=== PATIENT | female | born 1935 | race Caucasian/White ===

== ENCOUNTER 2016-09-19 13:28 | Emergency (ER) | payer OTHER, MEDICAID ==
--- NOTE | 2016-09-19 13:56 | EDPHY ---
H & P Stated Complaint: epigastric pain radiating to back this am, nausea Time Seen by Provider: 09/19/16 13:38 HPI/ROS: CHIEF COMPLAINT: Abdominal and back pain HISTORY OF PRESENT ILLNESS: The patient is an 81 y/o female arriving via EMS complaining of periumbilical abdominal pain with associated back pain onset at 9 :00 this morning, about 4.5 hours ago. Her history is significant for asthma and hypertension. She felt normal upon waking today, but around 9:00 she developed periumbilical pain that felt "like needles and gas" and radiated around both sides at the same level to her back. She took an OTC medication for gas without alleviation. She received 100mcg IV Fentanyl and 4mg IV Zofran from EMS, which resolved her pain completely. She continues to have nausea and belching. She reports a normal bowel movement this morning. She denies fever, vomiting, diarrhea, constipation, dysuria, dyspnea, chest pain, calf pain, leg weakness or paresthesia. She has never felt this pain previously and denies any previous abdominal surgeries. REVIEW OF SYSTEMS: A 10 point review of systems was performed and is negative with the exception of the elements mentioned in the history of present illness. Source: Patient Exam Limitations: No limitations - Personal History Current Tetanus/Diphtheria Vaccine: Unsure Current Tetanus Diphtheria and Acellular Pertussis (TDAP): Unsure Tetanus Vaccine Date: ~2010 - Medical/Surgical History PMH: PMH includes: 1. Asthma 2. Hypertension 3. Episode of Colitis 4. Possible osteoporosis 5. Cataract surgery 6. Arthritis 7. Skin cancer Prior medical records reviewed including admission 02/04/12 for asthma exacerbation and ED visit 06/09/16 for cough. Hx Asthma: Yes Hx Chronic Respiratory Disease: No Hx Diabetes: No Hx Cardiac Disease: No Hx Renal Disease: No Hx Cirrhosis: No Hx Alcoholism: No Hx HIV/AIDS: No Hx Splenectomy or Spleen Trauma: No Other PMH: htn asthma - Social History Smoking Status: Never smoked Additional Social History: Immigrant from [place]. Lives alone. No cigarettes or alcohol use. Worked as an principal automation engineer. PCP: Dr. Strickland Warp Worker: Dr. Harris; next appointment scheduled in 5 days on 09/23 - Physical Exam Exam: General Appearance: Alert, no acute distress. BP 182/78 at triage, 144/73 at time of my exam. Eyes: Pupils equal and round, no conjunctival injection, no discharge. Anicteric. ENT, Mouth: Mucous membranes are moist, no oropharyngeal erythema or edema. Neck: No lymphadenopathy, supple. Respiratory: Lungs are clear to auscultation; no wheezes, rales, or rhonchi. Cardiovascular: Regular rate and rhythm; no murmur, rub, or gallop. Gastrointestinal: Abdomen is obese, soft, mild RUQ tenderness, no masses or organomegaly, bowel sounds diminished. Skin: Warm and dry, no rashes, normal color. Back: Nontender to palpation over the thoracolumbar spine. Non-tender [id number] area of erythema to the right of T-L junction without warmth or evidence of rash. Extremities: No lower extremity edema, no calf tenderness or swelling. Neurological: Alert and oriented. Moving all four extremities easily and equally. Strength is 5 over 5 bilaterally with testing of all major motor groups. Sensation is intact to light touch over all 4 extremities. Psychiatric: Normal affect. Constitutional: Initial Vital Signs Temperature (C) 36.7 C 09/19/16 13:32 Heart Rate 78 09/19/16 13:32 Respiratory Rate 18 09/19/16 13:32 Blood Pressure 182/78 H 09/19/16 13:32 O2 Sat (%) 90 L 09/19/16 13:32 O2 Delivery Mode Room Air Allergies/Adverse Reactions: clindamycin Allergy (Severe, Verified 06/11/16 20:23) COLITIS Penicillins Allergy (Mild, Verified 06/11/16 20:23) Rash Sulfa (Sulfonamide Antibiotics) Allergy (Mild, Verified 06/11/16 20:23) PRURITIS ibuprofen Allergy (Verified 06/11/16 20:23) Home Medications: Medication Instructions Recorded Lisinopril 12/16/15 Singulair 12/16/15 methylPREDNISolone [Medrol Dose 1 each PO AD #1 ea 12/16/15 Miguel Angel] oxyCODONE/APAP 5/325 [Percocet 1 - 2 tab PO Q4H PRN #20 tab 12/16/15 5/325 (*)] traZODONE 12/16/15 Amlodipine Besylate 20 mg PO DAILY 12/19/15 Aspirin 81mg (OTC) 81 mg PO DAILY 12/19/15 CO Q-10 1 mg PO 12/19/15 Calcium 1,000 + D3 Caplet 1,600 mg PO DAILY 12/19/15 Fish Oil 1 mg PO DAILY 12/19/15 Glucosamine 1 mg PO DAILY 12/19/15 Lisinopril [Zestril 40 mg (*)] 40 mg PO DAILY 12/19/15 Percocet 5-325 mg Tablet 5 - 325 mg PO PRN PRN 12/19/15 Tylenol 325 mg PO PRN PRN 12/19/15 Vit E Acetate/Gly/Dimeth/Water 1 mg PO DAILY 12/19/15 traZODONE 100MG (RX) 100 mg PO DAILY 12/19/15 Albuterol [Ventolin Hfa Inhaler] 2 puffs IH QID PRN #1 mdi 06/09/16 Oseltamivir Phosphate [Tamiflu] 75 mg PO BID #10 cap 06/09/16 ASPIRIN 09/19/16 Amlodipine Besylate 09/19/16 Lisinopril 09/19/16 Medical Decision Making - Diagnostics EKG Interpretation: The 12 lead EKG was interpreted by myself. Sinus rhythm rate 62. See hard copy and/or "tracemaster" electronic copy for interpretation. Imaging: I viewed the images myself on the PACS system. ED Course/Re-evaluation: IV established by EMS. Labs drawn including CBC, CHEM, lipase, LFTs. UA ordered. Patient placed on pigs feet cleaner. Plan for abdominal CT. CT shows non-specific enteritis of loop of jejunum. No obvious bowel obstruction. Patient re-evaluated at 4:[address] scan of been relayed to her. She is complaining that her pain has returned. She again points to her upper abdomen from the umbilicus to the xiphoid, bilaterally, with pain in the same region of her back bilaterally. She also reports nausea. On reexamination her abdomen is soft. She has some mild tenderness to palpation in the right upper quadrant and the left upper quadrant. No guarding. Bowel sounds remains somewhat diminished. Aside from some nonspecific enteritis involving the jejunum I have not found an explanation for her pain. LFTs and lipase are normal. I do not think that this is biliary colic or pancreatitis. No ureteral stones were seen on CT. No evidence of a abdominal aortic aneurysm. Urine looks normal, she does not have CVA tenderness, and UTI/pyelonephritis quite unlikely with those findings. She will be given another dose of Zofran and pain medication. The re-evaluated at 5:10 p.m.. She feels better now but still has a feeling of fullness. On reexamination her abdomen remains soft with no specific area of tenderness. She localizes her pain as being in the central abdomen, which corresponds with the area of concern in the jejunum. She has been passing gas. On CT scan there is no evidence of bowel obstruction, however the possibility of early or intermittent obstruction remains. There are no peritoneal signs. She feels that she can return home. We reviewed the danger signs that should prompt her to return for another evaluation. I have also reviewed these with her daughter on the telephone. They both understand that the etiology of her abdominal pain remains unclear. I am recommending that if she has abdominal pain tomorrow she return for repeat examination. If anything worsens before then she should return immediately. Her daughter will be picking her up. Differential Diagnosis: Abdominal pain including but not limited to appendicitis, cholecystitis, gastritis, bowel obstruction, aortic dissection, ureterolithiasis, and urinary tract infection. - Data Points Laboratory Results: Laboratory Results 09/19/16 13:30 09/19/16 13:30 Medications Given: Discontinued Medications Fentanyl (Sublimaze) 75 mcg IVP EDNOW ONE Stop: 09/19/16 16:03 Last Admin: 09/19/16 16:25 Dose: 75 mcg Ondansetron HCl (Zofran) 4 mg IVP EDNOW ONE Stop: 09/19/16 16:03 Last Admin: 09/19/16 16:30 Dose: 4 mg Departure - Departure Disposition: Home, Routine, Self-Care Clinical Impression: Abdominal pain Qualifiers: Abdominal location: generalized Qualified Code(s): R10.84 - Generalized abdominal pain Condition: Good Instructions: Abdominal Pain (ED) Additional Instructions: If you develop fever, vomiting, diarrhea, severe persistent pain, any new or concerning symptoms you should return for re-evaluation immediately. If you have continued abdominal pain tomorrow I recommend that you come back so that we can re-examine you. Drink just clear liquids tonight, maybe some saltine crackers. Referrals: Patient,NotPresent [Unknown] - As per Instructions Kulwinder Strickland MD [Medical Doctor] - As per Instructions Report Scribed for: Morelia Madison Report Scribed by: Magaly Rudolph Date of Report: 09/19/16 Time of Report: 13:59 Physician Review and Approval Statement: 09/19/16 17:24 Portions of this note were transcribed by the emergency medical services coordinator. I, Dr. Morelia Madison, personally performed the history, physical exam, and medical decision- making; and confirmed the accuracy of the information in the transcribed note.
[2016-09-19 14:10] LABS: % IMMATURE GRANULYOCYTES 0.3 % (0.0-1.1); ABSOLUTE IMMATURE GRANULOCYTES 0.02 10^3/uL (0.00-0.10); ADD DIFF? NO; ADD MORPH? NO; ADD SCAN? NO; ATYPICAL LYMPHOCYTE FLAG 20 (0-99); FRAGMENT RBC FLAG 0 (0-99); HEMOGLOBIN 13.5 g/dL (12.6-16.3); LEFT SHIFT FLG 0 (0-99); LIPEMIA HEMOLYSIS FLAG 80 (0-99); MEAN CELL HEMOGLOBIN 27.6 pg (27.9-34.1); MEAN CELL HEMOGLOBIN CONCENTR. 32.1 g/dL (32.4-36.7); MEAN CELL VOLUME 85.9 fL (81.5-99.8); MEAN PLATELET VOLUME 9.3 fL (8.7-11.7); PLATELET CLUMPS FLAG 0 (0-99); PLATELET COUNT 273 10^3/uL (150-400); RED BLOOD CELL COUNT 4.89 10^6/uL (4.18-5.33); RED CELL DISTRIBUTION WIDTH 14.8 % (11.5-15.2)
[2016-09-19 14:18] LABS: ALANINE AMINOTRANSFERASE 45 IU/L (9-52); ALBUMIN 4.4 g/dL (3.5-5.0); ALKALINE PHOSPHATASE 58 IU/L (38-126); ANION GAP 10 mEq/L (8-16); ASPARTATE AMINOTRANSFERASE 34 IU/L (14-46); BILIRUBIN,TOTAL 0.7 mg/dL (0.1-1.4); BILIRUBIN-CONJUGATED 0.4 mg/dL (0.0-0.5); BILIRUBIN-UNCONJUGATED 0.3 mg/dL (0.0-1.1); CALCIUM 9.4 mg/dL (8.5-10.4); CARBON DIOXIDE 28 mEq/l (22-31); CHLORIDE 102 mEq/L (97-110); CREATININE 0.8 mg/dL (0.6-1.0); GLOMERULAR FILTRATION RATE > 60; GLUCOSE 88 mg/dL (70-100); POTASSIUM 4.6 mEq/L (3.5-5.2); SODIUM 140 mEq/L (134-144); TOTAL PROTEIN 7.8 g/dL (6.3-8.2)
--- NOTE | 2016-09-19 14:26 | CPEKG ---
Heart Rate: 62 RR Interval: 968 P-R Interval: 148 QRSD Interval: 80 QT Interval: 448 QTC Interval: 455 P [place]: 65 QRS [place]: 44 T Wave [place]: 36 EKG Severity - NORMAL ECG - EKG Impression: SINUS RHYTHM Electronically Signed By: Morelia Madison 19-Sep-2016 14:25:50
[2016-09-19] MEDS ORDERED: IOPAMIDOL (ISOVUE-300) 100 ML BTL IV ONE (14:31)
[2016-09-19 14:45] LABS: COLOR YELLOW; LEUKOCYTE ESTERASE,URINE NEGATIVE (NEGATIVE); NITRITE,URINE NEGATIVE (NEGATIVE)
[2016-09-19 15:47] VITALS: RESP 16; O2SAT 93
[2016-09-19] MEDS ORDERED: ONDANSETRON 4 MG/2 ML VIAL IVP ONE (16:02)
[2016-09-19] MEDS ORDERED: fentaNYL 100 MCG/2 ML INJ IVP ONE (16:02)
[2016-09-19 17:23] VITALS: BP 139/65; PULSE 68; TEMP 98.2
== END 2016-09-19 17:48 | disposition home or self-care (01) ==
LOC: EDUNIT#
DX: R10.84 Generalized abdominal pain (principal); J45.909 Unspecified asthma, uncomplicated; I10 Essential (primary) hypertension; Z79.82 Long term (current) use of aspirin; Z85.828 Personal history of other malignant neoplasm of skin
CPT/HCPCS: 74177; 93005; 96374; 96375; 99285; J2405; J3010; Q9967

== ENCOUNTER → 2016-09-23 | Outpatient (CLI) | payer OTHER, MEDICAID | LOC: BHFA 11:30 | PROVIDERS: ATTEND Internal Medicine Cardiovascular Disease | DX: R07.9 Chest pain, unspecified (principal); R06.01 Orthopnea; I10 Essential (primary) hypertension; R01.1 Cardiac murmur, unspecified ==

== ENCOUNTER → 2016-10-09 | Outpatient (CLI) | payer OTHER, MEDICAID | LOC: BHFA 08:30 | PROVIDERS: ATTEND Internal Medicine Cardiovascular Disease | DX: R07.9 Chest pain, unspecified (principal); R01.1 Cardiac murmur, unspecified; R06.00 Dyspnea, unspecified | CPT/HCPCS: 78452; 93017; 93306; A9500; J2785 ==

== ENCOUNTER → 2017-04-29 | Outpatient (CLI) | payer OTHER, MEDICAID | LOC: FIMAGING 13:24 | PROVIDERS: ATTEND Family Medicine | DX: J84.9 Interstitial pulmonary disease, unspecified (principal) ==

== ENCOUNTER → 2017-07-14 | Outpatient (CLI) | payer OTHER, MEDICAID | LOC: FIMAGING 12:51 | PROVIDERS: ATTEND Family Medicine | DX: Z12.31 Encounter for screening mammogram for malignant neoplasm of breast (principal) ==